=== PATIENT | female | born 1960 | race Hispanic/Latino ===

== ENCOUNTER 2017-11-09 13:32 | Inpatient (IN) ==
[2017-11-09] MEDS ORDERED: Sodium Chloride 0.9% 1,000 ML PRIMARY IV ONE (13:38)
[2017-11-09] MEDS ORDERED: IPRATROPIUM/ALBUTEROL SULFATE 3 ML NEB NEB ONE (13:38)
--- NOTE | 2017-11-09 13:48 | EKG ---
[address] [address] Measurements Intervals [place] Rate: 77 P: 79 FL: 161 QRS: 92 QRSD: 86 T: 80 QT: 376 QTc: 408 Interpretive Statements SINUS RHYTHM BORDERLINE RIGHT AXIS DEVIATION [QRS AXIS > 90] No previous ECG available for comparison Electronically Signed On 11-10-17 15:05:20 MDT by Herb Duron MD [email or web address]
[2017-11-09 13:54] LABS: VENOUS PH 7.42 (7.32-7.42)
--- NOTE | 2017-11-09 13:54 | PDOC ---
Dyspnea HPI - General Chief Complaint: Dyspnea Stated Complaint: COUGH,HEADACHE, TROUBLE BREATHING Date Seen by Provider: 11/09/17 Time Seen by Provider: 13:35 Source: POSITIVE: Patient Exam Limitations: POSITIVE: No limitations Treatment Prior to Arrival: REPORTS: None Nurse's Notes Reviewed & Considered: Yes - History of Present Illness Initial Comments: The patient is a 57-year-old female who presents to the emergency department with complaints of difficulty breathing. She states that she started to develop a cough and general malaise yesterday. Her cough has worsened and is occasionally productive of mucus. She states that she has associated nausea and emesis that started last night. She has generalized body aches and headache. She also reports subjective fevers and chills. Her shortness of breath has significantly worsened today as well. She denies any specific complaints of chest pain. She does have a history of smoking and has been prescribed an inhaler in the past however does not currently use any type of breathing treatments or oxygen. She does have a history of chronic back pain for which she takes medications. She denies any history of heart disease or blood clots. She does state that she has been having some problems with her left knee and has had some swelling in her left leg. She is supposed to have some type of orthopedic surgery on her left knee at some point. - Patient Home Medications Home Medications: Home Medications NK 11/09/17 - Patient Allergies Allergies/Adverse Reactions: Allergies 3 Allergy/AdvReac Type Severity Reaction Status Date / Time No Known Allergies Allergy Verified 11/09/17 13:33 Past Medical History - heen HEENT History: Other (please comment) Additional HEENT History: PREVIOUS RUPTURE LEFT EAR DRUM. NECK BIOPSY Cardiovascular History: Denies History Respiratory History: Other (please comment) Additional Respiratory History: SMOKER Gastrointestinal History: Denies History Genitourinary History: Denies History Endocrine History: Denies History Musculoskeletal History: Back Pain, Other (please comment) Prosthesis or Implant: No Additional Musculoskeletal History: LT SHOULDER SURGERY. "BONE ON BONE" IN BACK. CHRONIC BACK PAIN Neurological History: Denies History Blood Disorders: Denies History Psychiatric History: Denies History History of Sexually Transmitted Diseases: No Cancer History: Denies History In Past Year Been Physically Harmed or Verbally Threatened: No History of MDRO: No History of Other Communicable Diseases: No Tobacco Use: Current Every Day Smoker Alcohol Use: None In the Past 12 Months, Have Used or Abuse Any Substance: None Previous Surgical History: Yes Type / Date of Surgery: X 4. RT SHOULDER. NECK BIOPSY Significant Family History: No pertinent family hx Past Medical History Reviewed: Reviewed - No Changes ROS - Limitations ROS Limitations: No Limitations Constitution: REPORTS: Chills, Fever (Subjective) Cardiovascular: DENIES: Chest Pain, Heart Palpitations, Edema (Some swelling in her left leg related to her left knee) Neurological: REPORTS: Headache. DENIES: Numbness, Weakness Gastrointestinal: REPORTS: Nausea, Vomitting. DENIES: Abdominal Pain Endocrine: REPORTS: Fatigue Musculoskeletal: REPORTS: Back Pain (Chronic back pain), Muscle Aches Genitourinary: REPORTS: Denies Symptoms Eyes: REPORTS: Denies Symptoms ENT: REPORTS: Congestion, Sore Throat Skin: DENIES: Rash Dyspnea Physical Exam - General Appearance General Appearance: REPORTS: Alert, Cooperative, No Acute Distress - HEENT HEENT: POSITIVE: Head Inspection Nml, Eyes Inspection Nml, Ears Inspection Nml, Pharynx Inspect. Nml, Dry Mucous Membranes - Neck Neck: REPORTS: Normal Inspection. DENIES: Lymphadenopathy - Respiratory Respiratory: REPORTS: Speaks Full Sentences, Other (Oxygen saturations were in the low 80s on room air, she was placed on O2 per nasal cannula at 4 L to bring her sats up into the 90s. Breath sounds are diminished with expiratory wheezes and rhonchi bilaterally) - Cardiovascular Cardiovascular: REPORTS: Regular Rate and Rhythm, Heart Sounds Normal Peripheral Pulses: Dorsalis-pedis (R): 2+, Dorsalis-pedis (L): 2+ - Abdomen Abdomen: Soft: (All Quadrants), Denies Tenderness: (All Quadrants) - Skin Skin: REPORTS: Intact, No Rash - Extremities Extremity: Normal ROM: (All Extremities), Normal Inspection: (All Extremities) - Neurological / Psychological Neurological: POSITIVE: Oriented X3, Motor Normal, Sensation Normal Dyspnea Progress - Results Reviewed by me Xrays/CTs/US Reviewed by me: Yes Discussed with Radiologist: Yes Radiology Findings: One view chest x-ray is read as normal with hyperinflation per radiologist. I suspect there might be some increased haziness in the left lower lobe. Lab Results Reviewed by Me: Yes CBC and BMP: 11/09/17 13:40 11/09/17 13:40 Lab Results:: Laboratory Results 3 11/09/17 11/09/17 11/09/17 13:40 13:40 13:40 WBC 19.0 H RBC 4.61 Hgb 14.3 Hct 42.9 MCV 93 MCH 31.0 MCHC 33.4 RDW Coeff of Minal 13.4 Plt Count 217 MPV 8.2 Immature Gran % (Auto) 0 Neut % (Auto) 76.1 Lymph % (Auto) 12.1 Bull[place] % (Auto) 9.9 Eos % (Auto) 0.9 Baso % (Auto) 1.0 WBC Morphology Comment Normal morphology Plt Morphology Comment Normal morphology RBC Morph Comment Normal morphology D-Dimer 0.47 VBG pH VBG pCO2 VBG HCO3 VBG Base Excess Sodium Potassium Chloride Carbon Dioxide Anion Gap BUN Creatinine Estimated GFR BUN/Creatinine Ratio Glucose Calculated Osmolality Lactic Acid Calcium Total Bilirubin AST ALT Alkaline Phosphatase Troponin I < 0.012 Total Protein Albumin Globulin Albumin/Globulin Ratio 3 11/09/17 11/09/17 11/09/17 13:40 13:40 13:45 WBC RBC Hgb Hct MCV MCH MCHC RDW Coeff of Minal Plt Count MPV Immature Gran % (Auto) Neut % (Auto) Lymph % (Auto) [place] % (Auto) Eos % (Auto) Baso % (Auto) WBC Morphology Comment Plt Morphology Comment RBC Morph Comment D-Dimer VBG pH 7.42 VBG pCO2 38 L VBG HCO3 24 VBG Base Excess 0 Sodium 142 Potassium 3.8 Chloride 104 Carbon Dioxide 23 Anion Gap 15 BUN 12 Creatinine 0.8 Estimated GFR > 60 BUN/Creatinine Ratio 15.00 Glucose 122 H Calculated Osmolality 294.0 H Lactic Acid 1.0 Calcium 9.4 Total Bilirubin 0.6 AST 28 ALT 37 Alkaline Phosphatase 136 H Troponin I Total Protein 7.7 Albumin 4.2 Globulin 3.5 Albumin/Globulin Ratio 1.20 L EKG Interpreted/Reviewed By Me:: Yes EKG Interpretation:: POSITIVE: Normal Sinus Rhythm, Normal Rate, Normal Intervals, Normal QRS, Normal ST/T - Patient's Progress MDM / ED Course: The patient's oxygen saturations were in the low 80s on arrival to the emergency department. She was placed on O2 per nasal cannula. She did receive a DuoNeb shortly after arrival. Blood cultures and lactate were drawn with initial IV start. Her initial venous blood gas shows a pH of 7.41 with a PCO2 of 38. Her breathing subjectively improved after DuoNeb and being placed on oxygen. She was complaining of generalized aches as well as headache which she rated at an 8 out of 10. She received a liter of normal saline as well as Toradol 15 mg IV, Compazine 5 mg IV and Benadryl 25 mg IV after which she was feeling better. Her white blood cell count is elevated at 19,000. Lactate is normal at 1.0. D-dimer was also normal. Her chest x-ray was read as normal with hyperinflation per radiologist. Clinically however I suspect she has pneumonia with productive cough, hypoxia and elevated white count as well as rhonchi on exam and I question whether there might be some increased haziness on her chest x-ray in the left lower lobe. She will be treated clinically for COPD exacerbation and pneumonia. She was given Rocephin 2 g IV, Zithromax 500 mg IV and Solu-Medrol 125 mg IV. I did discuss these findings with the patient and her . I also discussed the patient with Dr. Bruno who has agreed to admit the patient to the hospitalist service for further treatment. The patient is in agreement with this plan. - Consult Counseled: POSITIVE: Patient, Family, RE: Lab Results, RE: Radiology Results, RE : DX Patient Care Time - Estimated PCT Patient Care Time (In Minutes): 30 Vital Signs - Recent Vital Signs Vital Signs: Vital Signs (Last 8 hours) Temp Pulse Pulse Resp BP Pulse Ox 11/09/17 13:51 78 16 94 11/09/17 13:50 82 15 92 11/09/17 13:35 24 91 11/09/17 13:32 97.9 F 89 28 H 112/61 81 - VS Reviewed Vital Signs Reviewed: Yes Discharge Clinical Impression: COPD exacerbation, Hypoxia, Pneumonia Discharge Disposition: Admit to Inpatient Condition: Fair Follow Up With: NONE,NONE [Primary Care Provider] - Date Decision to Admit to Inpatient: 11/09/17 Time Decision to Admit to Inpatient: 14:45
[2017-11-09] MEDS ORDERED: Prochlorperazine Edisylate Inj 10mg/2ml vial IVP ONE (14:13)
[2017-11-09] MEDS ORDERED: KETOROLAC 15 MG/1 ML VIAL IVP ONE (14:13)
[2017-11-09] MEDS ORDERED: diphenhydrAMINE 50 MG/1 ML VIAL IVP ONE (14:14)
[2017-11-09 14:26] LABS: EOSINOPHILS % (AUTO) 0.9 % (0-8); Hematocrit [HCT] 42.9 % (37.0-47.0); Hemoglobin [HGB] 14.3 g/dL (12.0-16.0); MEAN CORPUSCULAR HGB CONC 33.4 g/dL (33-37); MEAN CORPUSCULAR VOLUME 93 FL (81-99); MEAN PLATELET VOLUME 8.2 FL (7.4-12.2); MONOCYTES % (AUTO) 9.9 % (5-15); NEUTROPHILS % (AUTO) 76.1 % (50-80); RED BLOOD COUNT 4.61 10^6/uL (4.20-5.40)
[2017-11-09 14:27] LABS: PLATELET MORPHOLOGY COMMENT NORMAL MORPHOLOGY (NORM); RBC MORPHOLOGY COMMENT NORMAL MORPHOLOGY (NORM); WBC MORPHOLOGY COMMENT NORMAL MORPHOLOGY (NORM)
[2017-11-09 14:34] LABS: BLOOD UREA NITROGEN 12 mg/dL (7-22); SERUM ALBUMIN 4.2 g/dL (3.5-4.8)
--- NOTE | 2017-11-09 14:37 | DI ---
AP CHEST X-RAY, 11/09/2017 1:40 PM : Clinical History: Dyspnea. Previous Exam: None at this facility. There is no acute soft tissue or bony abnormality. Heart size is normal. The lungs are hyperinflated. There is no acute infiltrate or effusion. Mediastinal structures are normal. There are no pulmonary nodules. Reading: Normal chest x-ray. The lungs are hyperinflated in this patient may have underlying emphysema.
[2017-11-09] MEDS ORDERED: cefTRIAXone Inj 2 GM in Sodium Chloride 0.9% 100 ML IV ONE (14:38)
[2017-11-09] MEDS ORDERED: methylPREDNISolone 125 MG/2 ML VIAL IVP ONE (14:38)
[2017-11-09] MEDS ORDERED: ALBUTEROL SULFATE 2.5 MG/3 ML NEB PRN (15:25)
[2017-11-09] MEDS ORDERED: LIDOCAINE W/ SODIUM BICARB 0.5 ML SYR SUBD PRN (15:25)
[2017-11-09] MEDS ORDERED: Sodium Chloride 0.9% 250 ML IV ONE (15:26)
[2017-11-09] MEDS ORDERED: PNEUMOCOCCAL 23 VACCINE 25 MCG/0.5 ML VIAL IM ONE (15:55)
[2017-11-09] MEDS ORDERED: Sodium Chloride 0.9% 500 ML IV ONE (16:33)
[2017-11-09] MEDS ORDERED: KETOROLAC 15 MG/1 ML VIAL IVP PRN (16:36)
[2017-11-09] MEDS: cefTRIAXone Inj 2 GM in Sodium Chloride 0.9% 100 ML IV SCH (16:39)
--- NOTE | 2017-11-09 16:40 | PDOC ---
HPI - History of Present Illness Date of Service: 11/09/17 Time of Service: 16:35 Chief Complaint: Cough and vomiting History of Present Illness: This very pleasant 57-year-old female without significant past medical history other than left knee osteoarthritis for which she is waiting a knee replacement and tobacco abuse, who comes in accompanied by her with complaints of coughing that started abruptly yesterday and then was followed soon by vomiting. The patient had fevers and chills. She stated her temperature was as high as the 102F. She has not had the symptoms happen before. Despite her smoking, she states that she's been cutting back and she is at about a pack a day and she does not have a daily smoker's cough. She felt short of breath as well, she states that she tried Tylenol and Robitussin without any relief. She came in for evaluation and a chest x-ray was negative for any pneumonia. She is found to be hypoxic with a room air saturation of 81%. Antibiotics and breathing treatments in the emergency room seemed to help. It was felt that she may have developing COPD and perhaps had an exacerbation and is asked to admit the patient. The patient did notice that she was wheezing as an associated symptom with the above complaints. Past Medical History Medical History: 1. Osteoarthritis, awaiting a left knee replacement in [place], [place]. Surgical History: 1. Skin biopsy on her neck, benign Pertinent Family History: Significant for diabetes in her siblings Past Social History: Smokes one pack per day, does not drink alcohol, . Has been for over 30 years. Has 3 children described as healthy. Lives in [place], [place], but appear with her for his work. Tobacco Use: Current Every Day Smoker (1 pack per day) In the Past 12 Months, Have Used or Abuse Any of the Following Substance: None Alcohol Use: None Medication / Allergies Home Medications: Home Medications 3 Medication Instructions Recorded Confirmed Type NK 11/09/17 11/09/17 History Allergies/Adverse Reactions: Allergies 3 Allergy/AdvReac Type Severity Reaction Status Date / Time No Known Allergies Allergy Verified 11/09/17 13:33 Review of Systems - Review of Systems All Systems: Reviewed & No Additional Complaints Except as Stated (I did a 12 point review systems and it was negative other than that discussed in history of present illness and that noted below.) - Respiratory Respiratory: REPORTS: Negative System Review, Cough, Wheezing - Musculoskeletal Musculoskeletal: REPORTS: Joint Pain - Knees (Left knee in particular.) - Additonal Details Additional ROS Details: History of a rash on her neck in the past that required biopsy but it was benign. Exam - Vitals Vital Signs: Vital Signs Temperature 97.9 F Temperature Source Temporal Artery Scan Pulse Rate [Pulse Oximeter] 76 Pulse Rate 78 Respiratory Rate 28 Blood Pressure [Left Arm] 100/51 Pulse Ox 90 Oxygen Flow Rate 4 Oxygen Delivery Method Nasal Cannula Height 5 ft Weight 150 lb 14.4 oz - General General Appearance: No Acute Distress, Cooperative - Head Head Exam: Normal Inspection, Normocephalic, Atraumatic - Eye Eye Exam: POSITIVE: Normal Appearance, No Scleral Icterus - ENT ENT Exam: POSITIVE: Mucous Membranes Dry - Neck Neck Exam: Normal Inspection, No Tenderness, No Lymphadenopathy, No Thyromegaly , JVP is not Raised - Respiratory Respiratory Exam: POSITIVE: Breathing Non Labored, Wheezes, Coarse Breath Sounds Additional Respiratory Exam Details: The patient has had intermittent respiratory rate in the mid to high 20s, but on my examination she was in the 16-18 range. - Cardiovascular Cardiovascular Exam: POSITIVE: RRR, No Murmur, No Clicks, No Gallops, No Rubs, No JVD - GI/Abdominal GI/Abdominal Exam: POSITIVE: Normal Bowel Sounds, Non Tender - Rectal Rectal Exam: POSITIVE: Deferred - External Exam: POSITIVE: Deferred Exam: POSITIVE: Deferred - Extremities Extremities Exam: POSITIVE: No Clubbing Present, No Edema Present, No Cyanosis Present - Back Back Exam: POSITIVE: Normal Inspection, No CVA Tenderness - Neurological Neurological Exam: POSITIVE: Alert, Oriented x 3, No Facial Droop, Speech Intact / Clear, Moves All Extremities Equally - Psychiatric Psychiatric Exam: POSITIVE: Normal Affect, Normal Mood - Integumentary Integumentary Exam: POSITIVE: Normal Color, Warm, Dry, Intact - Central Line Examination Central Line Present on Admission: No Results - Labs CBC and BMP: 11/09/17 13:40 11/09/17 13:40 Additional Lab Results: Laboratory Results 11/09/17 11/09/17 11/09/17 Range/Units 13:40 13:40 13:40 WBC 19.0 H (4.8-10.8) 10^3/uL RBC 4.61 (4.20-5.40) 10^6/uL Hgb 14.3 (12.0-16.0) g/dL Hct 42.9 (37.0-47.0) % MCV 93 (81-99) FL MCH 31.0 (27-31) PG MCHC 33.4 (33-37) g/dL RDW Coeff of Minal 13.4 (11.5-14.5) % Plt Count 217 (140-350) 10*3/uL MPV 8.2 (7.4-12.2) FL Immature Gran % (Auto) 0 (0-5) % Neut % (Auto) 76.1 (50-80) % Lymph % (Auto) 12.1 (10-50) % Petroleum % (Auto) 9.9 (5-15) % Eos % (Auto) 0.9 (0-8) % Baso % (Auto) 1.0 (0-1) % WBC Morphology Comment Normal morphology (NORM) Plt Morphology Comment Normal morphology (NORM) RBC Morph Comment Normal morphology (NORM) D-Dimer (0.00-0.59) mg/L VBG pH (7.32-7.42) VBG pCO2 (45-55) mmHg VBG HCO3 (22-26) mmol/L VBG Base Excess (-2-2) MMOL/L Sodium (135-145) meq/L Potassium (3.8-5.2) meq/L Chloride (98-112) meq/L Carbon Dioxide (23-33) meq/L Anion Gap (5-20) BUN (7-22) mg/dL Creatinine (0.50-1.20) mg/dL Estimated GFR (>60 ml/min/1.73m(2)) BUN/Creatinine Ratio (6-20) Glucose (78-110) mg/dL Calculated Osmolality (267-292) mOsm/kg Lactic Acid (0.70-2.10) MMOL/L Calcium (8.7-10.7) mg/dL Magnesium 2.2 (1.6-2.4) mg/dL Total Bilirubin (0.3-1.2) mg/dL AST (8-39) IU/L ALT (9-52) IU/L Alkaline Phosphatase (38-126) IU/L Troponin I < 0.012 (< 0.040) ng/mL C-Reactive Protein 19.1 H (0.0-0.9) mg/dL NT-Pro-B Natriuret Pep 1300 H (0-125) PG/ML Total Protein (6.1-8.0) g/dL Albumin (3.5-4.8) g/dL Globulin (2.50-4.10) g/dL Albumin/Globulin Ratio (1.3-2.0) mg/g 11/09/17 11/09/17 11/09/17 Range/Units 13:40 13:40 13:40 WBC (4.8-10.8) 10^3/uL RBC (4.20-5.40) 10^6/uL Hgb (12.0-16.0) g/dL Hct (37.0-47.0) % MCV (81-99) FL MCH (27-31) PG MCHC (33-37) g/dL RDW Coeff of Minal (11.5-14.5) % Plt Count (140-350) 10*3/uL MPV (7.4-12.2) FL Immature Gran % (Auto) (0-5) % Neut % (Auto) (50-80) % Lymph % (Auto) (10-50) % Petroleum % (Auto) (5-15) % Eos % (Auto) (0-8) % Baso % (Auto) (0-1) % WBC Morphology Comment (NORM) Plt Morphology Comment (NORM) RBC Morph Comment (NORM) D-Dimer 0.47 (0.00-0.59) mg/L VBG pH (7.32-7.42) VBG pCO2 (45-55) mmHg VBG HCO3 (22-26) mmol/L VBG Base Excess (-2-2) MMOL/L Sodium 142 (135-145) meq/L Potassium 3.8 (3.8-5.2) meq/L Chloride 104 (98-112) meq/L Carbon Dioxide 23 (23-33) meq/L Anion Gap 15 (5-20) BUN 12 (7-22) mg/dL Creatinine 0.8 (0.50-1.20) mg/dL Estimated GFR > 60 (>60 ml/min/1.73m(2)) BUN/Creatinine Ratio 15.00 (6-20) Glucose 122 H (78-110) mg/dL Calculated Osmolality 294.0 H (267-292) mOsm/kg Lactic Acid 1.0 (0.70-2.10) MMOL/L Calcium 9.4 (8.7-10.7) mg/dL Magnesium (1.6-2.4) mg/dL Total Bilirubin 0.6 (0.3-1.2) mg/dL AST 28 (8-39) IU/L ALT 37 (9-52) IU/L Alkaline Phosphatase 136 H (38-126) IU/L Troponin I (< 0.040) ng/mL C-Reactive Protein (0.0-0.9) mg/dL NT-Pro-B Natriuret Pep (0-125) PG/ML Total Protein 7.7 (6.1-8.0) g/dL Albumin 4.2 (3.5-4.8) g/dL Globulin 3.5 (2.50-4.10) g/dL Albumin/Globulin Ratio 1.20 L (1.3-2.0) mg/g 11/09/17 Range/Units 13:45 WBC (4.8-10.8) 10^3/uL RBC (4.20-5.40) 10^6/uL Hgb (12.0-16.0) g/dL Hct (37.0-47.0) % MCV (81-99) FL MCH (27-31) PG MCHC (33-37) g/dL RDW Coeff of Minal (11.5-14.5) % Plt Count (140-350) 10*3/uL MPV (7.4-12.2) FL Immature Gran % (Auto) (0-5) % Neut % (Auto) (50-80) % Lymph % (Auto) (10-50) % Petroleum % (Auto) (5-15) % Eos % (Auto) (0-8) % Baso % (Auto) (0-1) % WBC Morphology Comment (NORM) Plt Morphology Comment (NORM) RBC Morph Comment (NORM) D-Dimer (0.00-0.59) mg/L VBG pH 7.42 (7.32-7.42) VBG pCO2 38 L (45-55) mmHg VBG HCO3 24 (22-26) mmol/L VBG Base Excess 0 (-2-2) MMOL/L Sodium (135-145) meq/L Potassium (3.8-5.2) meq/L Chloride (98-112) meq/L Carbon Dioxide (23-33) meq/L Anion Gap (5-20) BUN (7-22) mg/dL Creatinine (0.50-1.20) mg/dL Estimated GFR (>60 ml/min/1.73m(2)) BUN/Creatinine Ratio (6-20) Glucose (78-110) mg/dL Calculated Osmolality (267-292) mOsm/kg Lactic Acid (0.70-2.10) MMOL/L Calcium (8.7-10.7) mg/dL Magnesium (1.6-2.4) mg/dL Total Bilirubin (0.3-1.2) mg/dL AST (8-39) IU/L ALT (9-52) IU/L Alkaline Phosphatase (38-126) IU/L Troponin I (< 0.040) ng/mL C-Reactive Protein (0.0-0.9) mg/dL NT-Pro-B Natriuret Pep (0-125) PG/ML Total Protein (6.1-8.0) g/dL Albumin (3.5-4.8) g/dL Globulin (2.50-4.10) g/dL Albumin/Globulin Ratio (1.3-2.0) mg/g - EKG Data -: EKG Interpreted by Me Rate: Normal EKG Shows Normal: Sinus Rhythm - EKG Data When Compared to Previous EKG(s) There Are: Previous EKG Unavailable EKG Interpretation: Normal EKG - Imaging Status: Image Reviewed by Me (Chest x-ray, on my view, negative for pneumonia.) Assessment and Plan - Patient Problems (1) Respiratory insufficiency Current Visit: Yes Status: Acute Code(s): R06.89 - Other abnormalities of breathing (2) Hypoxia Current Visit: Yes Status: Acute Code(s): R09.02 - Hypoxemia (3) Tobacco abuse Current Visit: Yes Status: Acute Code(s): Z72.0 - Tobacco use (4) Osteoarthritis of left knee Current Visit: No Status: Acute Code(s): M17.9 - Osteoarthritis of knee, unspecified - Assessment / Plan Additional Assessment/Plan Details: At this point I do not know if this is a COPD exacerbation, PE with the abrupt onset of symptoms, that chest x-ray just does not seem. 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 The abruptness of the symptoms make me think that this could be a pneumonia or a blood clot. She could very well have COPD or emphysema and I think that when she is in a normal state, i.e. not in an infectious state, or acute presentation stay, the patient should probably have pulmonary function tests are off the spirometry to try and diagnose COPD. In terms of her respiratory insufficiency at this time, I will treat as if this could be a potential exacerbation, continue Rocephin IV, steroids with prednisone at 40 mg daily for 5 days, and then oxygen as necessary with breathing therapies and pulmonary toilet. Patient did request Percocet for her knee pain. I did review the medical record. She's had multiple emergency room visits but not for the last 2 years related to knee pain in the past as well. She states to me that she is awaiting knee replacement. I will go ahead and write for the Percocet at this time. She requested discharge, I will only do a short-term prescription. IV fluids be administered as her systolic pressures around 100, and she looks clinically mildly dehydrated. Check CBC in a.m. with differential Full code Plan above discussed with patient and her and they agreed. Pneumovax vaccine will be administered by the patient is here. I did provide smoking cessation education and encouraged patient to continue to her efforts to cut back and quit smoking.
[2017-11-09] MEDS: Sodium Chloride 0.9% 1,000 ML PRIMARY IV SCH (17:23)
[2017-11-09] MEDS: oxyCODONE/APAP 7.5/325 Tab 1 TAB TAB PO PRN ×2 (17:51→21:45)
[2017-11-09] MEDS: IPRATROPIUM/ALBUTEROL SULFATE 3 ML NEB NEB SCH ×2 (18:19→19:15)
[2017-11-09] MEDS: PREDNISONE PO SCH ×2 (19:34)
[2017-11-09] MEDS: diphenhydrAMINE 25 MG CAPSULE PO SCH (19:34)
[2017-11-09] MEDS ORDERED: Sodium Chloride 0.9% 500 ML PRIMARY IV ONE (20:47)
[2017-11-10] MEDS ORDERED: Sodium Chloride 0.9% 500 ML PRIMARY IV ONE (00:24)
[2017-11-10] MEDS: Sodium Chloride 0.9% 1,000 ML PRIMARY IV SCH ×3 (00:43→09:04)
[2017-11-10] MEDS: PREDNISONE PO SCH ×4 (00:43→07:05)
[2017-11-10] MEDS: diphenhydrAMINE 25 MG CAPSULE PO SCH ×2 (00:43→07:05)
[2017-11-10] MEDS: oxyCODONE/APAP 7.5/325 Tab 1 TAB TAB PO PRN ×5 (02:31→21:04)
[2017-11-10] MEDS ORDERED: Sodium Chloride 0.9% 500 ML IV ONE (04:51)
[2017-11-10 05:18] LABS: BASOPHILS # (AUTO) 0.01 10*3/UL; BASOPHILS % (AUTO) 0.1 % (0-1); EOSINOPHILS # (AUTO) 0 10*3/UL; EOSINOPHILS % (AUTO) 0 % (0-8); Hematocrit [HCT] 34.5 % (37.0-47.0); Hemoglobin [HGB] 11.4 g/dL (12.0-16.0); LYMPHOCYTES # (AUTO) 1.42 10*3/uL; MEAN CORPUSCULAR HEMOGLOBIN 30.5 PG (27-31); MEAN CORPUSCULAR VOLUME 92.2 FL (81-99); MEAN PLATELET VOLUME 11.2 FL (7.4-12.2); MONOCYTES # (AUTO) 0.72 10*3/UL (0.3-0.8); NEUTROPHILS # (AUTO) 15.64 10*3/UL; NEUTROPHILS % (AUTO) 87.7 % (50-80); RED BLOOD COUNT 3.74 10^6/uL (4.20-5.40)
[2017-11-10 06:09] LABS: PLATELET MORPHOLOGY COMMENT NORMAL MORPHOLOGY (NORM); RBC MORPHOLOGY COMMENT NORMAL MORPHOLOGY (NORM); WBC MORPHOLOGY COMMENT NORMAL MORPHOLOGY (NORM)
[2017-11-10] MEDS: IPRATROPIUM/ALBUTEROL SULFATE 3 ML NEB NEB SCH ×4 (06:10→18:28)
[2017-11-10] MEDS: ENOXAPARIN SODIUM 40 MG/0.4 ML SYRINGE SUBCUT SCH (09:07)
--- NOTE | 2017-11-10 09:58 | DI ---
CT ANGIOGRAM OF THE CHEST, 11/10/2017 8:00 AM : Clinical History: Shortness of breath. Cough. Hypoxia. Previous Exam: None at this facility. Scans are performed from the base of the neck to the lower lung bases with IV contrast. 65 mL of Isov ue 300 was injected IV. Proprietary automated bolus tracking software was used to verify the timing o f the injection. The patient indicated that she had a contrast allergy and the patient was premedicat ed with steroids by the attending hospitalist over the past 13 hours. The base of the neck and thoracic inlet are normal. There are no abnormal axillary, supraclavicular, mediastinal, or hilar nodes. The heart is normal. The pulmonary arteries are normal. There is no pulm onary arterial hypertension. There is no evidence of pulmonary embolism or pulmonary infarction. Ther e is discoid atelectasis in the lingular segment as well as patchy areas of atelectasis in the left l ower lobe. There is atelectasis in the right lower lobe primarily in the posterobasal segment. There is bullous emphysema with chronic interstitial pulmonary fibrosis manifested by Julian A and Julina B lines. In the posterior segment of the right upper lobe, there is a more prominent "honeycomb" patte rn also indicating chronic interstitial disease although it is uncertain why only this segment is inv olved rather than a more diffuse distribution. There is either loculated pleural fluid or pleural thi ckening in the superior aspect of the left major fissure. READIN. Normal CTA of the chest. There are no pulmonary emboli or pulmonary infarcts. 2. There is discoid atelectasis in the lingular segment with atelectasis in both lower lobes and eit her loculated fluid or pleural thickening in the superior aspect of the left major fissure. 3. Centrilobular emphysema with bullae and chronic interstitial pulmonary fibrosis. The posterior se gment of the right upper lobe has a "honeycomb" pattern typical of chronic interstitial disease altho ugh it is uncertain why only the segment is involved rather than a more diffuse distribution.
[2017-11-10] MEDS: predniSONE Tab 20 MG TAB PO SCH (11:06)
[2017-11-10] MEDS: cefTRIAXone Inj 2 GM in Sodium Chloride 0.9% 100 ML IV SCH (15:07)
[2017-11-10] MEDS ORDERED: NICOTINE 21 MG /DAY PATCH TRANSDERM ONE (16:05)
--- NOTE | 2017-11-10 16:05 | PDOC(PROG) ---
Date and Time of Service: 11/10/2017, 1604 Interval History: States that she has some pain from coughing along her rib cage bilaterally and has a headache. Otherwise she feels better in terms of her cough, still present but lightened up a bit. She feels like her breathing is a little better. No chest pains. No nausea or vomiting. Is willing to try a nicotine patch. Objective : Data - Labs CBC and BMP: 11/10/17 04:18 11/09/17 13:40 - Imaging CT Scan Status: Image Reviewed by Me (I looked at the CT scan and I'm not sure what's going on in the right lower lobe but it looks like there could be some atelectasis there and it looks consistent with emphysema. I read the report from the radiologist.) Objective : Exam - General General Appearance: No Acute Distress, Cooperative Additional General Exam Details: Vital Signs - Last Taken Temperature 98.4 F 11/10/17 13:00 Pulse Rate 74 11/10/17 15:02 Respiratory Rate 20 11/10/17 15:02 Blood Pressure 103/53 11/10/17 13:00 Pulse Ox 93 11/10/17 15:01 - Eye Eye Exam: No Scleral Icterus - ENT ENT Exam: Mucous Membranes Moist - Respiratory Respiratory Exam: Breathing Non Labored, Wheezes, Coarse Breath Sounds - Cardiovascular Cardiovascular Exam: RRR, No Murmur, No Clicks, No Gallops, No Rubs, No JVD - GI/Abdominal GI/Abdominal Exam: Normal Bowel Sounds, Non Tender, Non Distended, Soft - Extremities Extremities Exam: No Clubbing Present, No Edema Present, No Cyanosis Present - Neurological Neurological Exam: Alert, Oriented x 3, No Facial Droop, Speech Intact / Clear, Moves All Extremities Equally Assessment and Plan - Patient Problems (1) COPD exacerbation Current Visit: Yes Status: Acute Code(s): J44.1 - Chronic obstructive pulmonary disease with (acute) exacerbation (2) Respiratory insufficiency Current Visit: Yes Status: Acute Code(s): R06.89 - Other abnormalities of breathing (3) Hypoxia Current Visit: Yes Status: Acute Code(s): R09.02 - Hypoxemia (4) Tobacco abuse Current Visit: Yes Status: Acute Code(s): Z72.0 - Tobacco use (5) Osteoarthritis of left knee Current Visit: No Status: Acute Code(s): M17.9 - Osteoarthritis of knee, unspecified - Assessment / Plan Additional Assessment/Plan Details: Continue Rocephin/steroids/oxygen/breathing therapies Smoking cessation education and we will try nicotine replacement. I discussed this for less than 5 minutes with the patient. That was done at bedside. Codeine for cough. I think the patient would benefit from an evaluation with [facility] in [place] to review her CT scan and do any further workup for pulmonary fibrosis as indicated by their review. She can get her referral to them from her primary physician in [place] and she lives down there. We will get a CT scan on a CD for her to take with her at the time of discharge. She's not quite ready to discharge, still hypoxic, not sure if she'll need oxygen so I like to watch her another 24 hours or so. CBC in a.m.
[2017-11-10] MEDS: GUAIFENESIN/CODEINE SYRUP 100 MG/ 10 MG/ 5 ML UD CUP PO PRN ×2 (16:46→23:41)
[2017-11-11] MEDS: oxyCODONE/APAP 7.5/325 Tab 1 TAB TAB PO PRN ×4 (02:25→15:09)
[2017-11-11] MEDS: IPRATROPIUM/ALBUTEROL SULFATE 3 ML NEB NEB SCH ×3 (06:12→14:47)
[2017-11-11 06:15] VITALS: RESP 20
[2017-11-11] MEDS: GUAIFENESIN/CODEINE SYRUP 100 MG/ 10 MG/ 5 ML UD CUP PO PRN (06:42)
[2017-11-11] MEDS ORDERED: NICOTINE 21 MG /DAY PATCH TRANSDERM SCH (09:00)
[2017-11-11] MEDS ORDERED: Patch Removal PATCH TRANSDERM SCH (09:00)
[2017-11-11] MEDS: predniSONE Tab 20 MG TAB PO SCH (09:12)
[2017-11-11] MEDS: ENOXAPARIN SODIUM 40 MG/0.4 ML SYRINGE SUBCUT SCH (09:12)
[2017-11-11 11:49] LABS: BASOPHILS # (AUTO) 0.02 10*3/UL; BASOPHILS % (AUTO) 0.1 % (0-1); EOSINOPHILS # (AUTO) 0.01 10*3/UL; EOSINOPHILS % (AUTO) 0.1 % (0-8); Hematocrit [HCT] 36.2 % (37.0-47.0); Hemoglobin [HGB] 11.8 g/dL (12.0-16.0); MEAN CORPUSCULAR HEMOGLOBIN 29.9 PG (27-31); MEAN CORPUSCULAR HGB CONC 32.6 g/dL (33-37); MEAN CORPUSCULAR VOLUME 91.6 FL (81-99); MEAN PLATELET VOLUME 10.6 FL (7.4-12.2); MONOCYTES # (AUTO) 0.94 10*3/UL (0.3-0.8); MONOCYTES % (AUTO) 5.7 % (5-15); NEUTROPHILS # (AUTO) 13.52 10*3/UL; NEUTROPHILS % (AUTO) 82.1 % (50-80); RED BLOOD COUNT 3.95 10^6/uL (4.20-5.40)
[2017-11-11 12:08] LABS: PLATELET MORPHOLOGY COMMENT NORMAL MORPHOLOGY (NORM); RBC MORPHOLOGY COMMENT NORMAL MORPHOLOGY (NORM); WBC MORPHOLOGY COMMENT NORMAL MORPHOLOGY (NORM)
[2017-11-11 12:16] VITALS: BP 100/43; TEMP 98.1
--- NOTE | 2017-11-11 15:07 | DCSUMMARY ---
Hospitalization Summary Admit Date: 11/09/2017 Discharge Date: 11/11/17 Primary Diagnosis:: COPD exacerbation Secondary Diagnosis:: pulmonary fibrosis tobacco abuse Hospital Course: This is a 57-year-old female who came in with symptoms of cough, shortness breath, and is a nonsmoker. We did a chest x-ray and there is no evidence of pneumonia although clinically she seemed adequate pneumonia. We got a CAT scan , and it showed emphysema and fibrosis but no infiltrate. We treated her as a COPD exacerbation. This is newly diagnosed for her. She would still benefit from spirometry and her primary care clinic in [place]. The patient improved significantly and stated that her breathing was 80% better than when she came in today. She still has cough and some rib pain from her cough, but that was managed with Percocet and the patient states that that seemed to be helping. We also put her on some Robitussin before meals to help suppress the cough to some degree. She was managed with Rocephin and prednisone in the hospital and will have her finish her course of Zithromax over the next 3 days for a total of 5 days of antibiotics and we will keep her on 40 mg of prednisone through a total of 5 days and then discontinue. I'm starting the patient on Spiriva and albuterol as an outpatient. Given the CT scan findings of fibrosis as well as emphysema, I recommended to the patient that she see [facility] in [place]. She can arrange a referral through her primary provider who is based in [place]. We got the CT scan on a CD and gave her that at discharge. She was still 87% on room air at rest, and I believe will require 2 L of oxygen for at least some period of time and this can be reassessed as time goes on. We spent ample time on smoking cessation and we have the patient on a nicotine replacement patch. I recommended nicotine replacement products to try and come off of cigarettes. Today, the patient denies any chest pain, complains of some lower rib cage pain , particularly on the right, with coughing. She denies any nausea or vomiting. She would like to go home. Assessment and Plan: 1. As per discharge assessments noted 2. Disposition: Patient is discharged home 3. Condition on discharge, stable and improved. 4. Diet: regular diet 5. Activities: resume normal activities, but quit smoking 6. Follow-Up: 1. Primary care provider in [place] in 1 week 2. I recommend consideration for screening for diabetes as patient does have what appears to be steroid-induced hyperglycemia. This could be stress hyperglycemia as well. 7. Medications at the Time of Discharge: Home Medications 3 Medication Instructions Recorded Confirmed Type Albuterol 2 puff IH Q6H PRN #1 aer.refill 11/11/17 Rx Azithromycin [Zithromax] 500 mg PO DAILY #3 tab 11/11/17 Rx Nicotine 21mg Patch [Nicoderm CQ 1 patch TRANSDERM DAILY #30 patch 11/11/17 Rx 21mg Patch] Tiotropium Jenkins [Spiriva] 1 inh IH DAILY #1 cap.w.dev 11/11/17 Rx guaiFENesin/Codeine Liquid 5 ml PO Q6H PRN #120 cup 11/11/17 Rx [Robitussin AC Liquid] oxyCODONE/APAP 7.5/325 Tab 1 - 2 tab PO Q4H PRN #30 tab 11/11/17 Rx [Percocet 7.5/325 Tab] predniSONE Tab [Deltasone Tab] 40 mg PO DAILY #6 tab 11/11/17 Rx 8. Time, care, counseling and coordination of care for this discharge is greater than 30 minutes. Exam - Vitals Vital Signs: Vital Signs Temperature 98.1 F Temperature Source Temporal Artery Scan Pulse Rate [Telemetry] 58 Pulse Rate [Pulse Oximeter] 70 Pulse Rate 74 Respiratory Rate 20 Blood Pressure [Left Arm] 100/43 Pulse Ox 92 Oxygen Flow Rate 2 Oxygen Delivery Method Room Air Height 5 ft Weight 160 lb 9.6 oz - General General Appearance: No Acute Distress, Cooperative - Head Head Exam: Normal Inspection, Normocephalic, Atraumatic - Eye Eye Exam: POSITIVE: No Scleral Icterus - ENT ENT Exam: POSITIVE: Mucous Membranes Moist - Respiratory Respiratory Exam: POSITIVE: Breathing Non Labored, Wheezes (In the lower bases but significantly improved.) - Cardiovascular Cardiovascular Exam: POSITIVE: RRR, No Murmur, No Clicks, No Gallops, No Rubs, No JVD - GI/Abdominal GI/Abdominal Exam: POSITIVE: Normal Bowel Sounds, Non Tender, Non Distended, Soft - Extremities Extremities Exam: POSITIVE: No Edema Present, No Cyanosis Present - Neurological Neurological Exam: POSITIVE: Alert, Oriented x 3, No Facial Droop, Speech Intact / Clear, Moves All Extremities Equally Data Peritnent Studies: 11/09/17 11/09/17 11/09/17 13:40 13:40 13:40 WBC 19.0 H Hgb Hct Plt Count Sodium Potassium Chloride Carbon Dioxide Anion Gap BUN Creatinine Estimated GFR BUN/Creatinine Ratio Glucose Calculated Osmolality Lactic Acid Calcium Magnesium 2.2 Total Bilirubin AST ALT Alkaline Phosphatase Troponin I < 0.012 C-Reactive Protein 19.1 H NT-Pro-B Natriuret Pep 1300 H Total Protein Albumin Globulin 11/09/17 11/09/17 11/10/17 13:40 13:40 04:18 WBC 17.82 H Hgb Hct Plt Count Sodium 142 Potassium 3.8 Chloride 104 Carbon Dioxide 23 Anion Gap 15 BUN 12 Creatinine 0.8 Estimated GFR > 60 BUN/Creatinine Ratio 15.00 Glucose 122 H Calculated Osmolality 294.0 H Lactic Acid 1.0 Calcium 9.4 Magnesium Total Bilirubin 0.6 AST 28 ALT 37 Alkaline Phosphatase 136 H Troponin I C-Reactive Protein NT-Pro-B Natriuret Pep Total Protein 7.7 Albumin 4.2 Globulin 3.5 11/11/17 11:42 WBC 16.45 H Hgb 11.8 L Hct 36.2 L Plt Count 227 Sodium Potassium Chloride Carbon Dioxide Anion Gap BUN Creatinine Estimated GFR BUN/Creatinine Ratio Glucose Calculated Osmolality Lactic Acid Calcium Magnesium Total Bilirubin AST ALT Alkaline Phosphatase Troponin I C-Reactive Protein NT-Pro-B Natriuret Pep Total Protein Albumin Globulin Procedures: [address] [facility] [place] [address] PH: DD: [phone] FAX: [phone] ~DIAGNOSTIC IMAGING REPORT~ Patient: Marizol Rosas : 1960 Sex: F Age: 57 Exam Name: CT CTA Chest Non-Coronary [facility] Exam Date: 11/10/17 Report # : [id number] CPT Code: 33576 EMR/MR #: [id number] Ordering: ANALI HILL Admiting: ANALI HILL DO Primary: NONE,NONE Attending: ANALI HILL DO Signed CT ANGIOGRAM OF THE CHEST, 11/10/2017 8:00 AM : Clinical History: Shortness of breath. Cough. Hypoxia. Previous Exam: None at this facility. Scans are performed from the base of the neck to the lower lung bases with IV contrast. 65 mL of Isovue 300 was injected IV. Proprietary automated bolus tracking software was used to verify the timing of the injection. The patient indicated that she had a contrast allergy and the patient was premedicated with steroids by the attending hospitalist over the past 13 hours. The base of the neck and thoracic inlet are normal. There are no abnormal axillary, supraclavicular, mediastinal, or hilar nodes. The heart is normal. The pulmonary arteries are normal. There is no pulmonary arterial hypertension. There is no evidence of pulmonary embolism or pulmonary infarction. There is discoid atelectasis in the lingular segment as well as patchy areas of atelectasis in the left lower lobe. There is atelectasis in the right lower lobe primarily in the posterobasal segment. There is bullous emphysema with chronic interstitial pulmonary fibrosis manifested by Julian A and Julian B lines. In the posterior segment of the right upper lobe, there is a more prominent "honeycomb" pattern also indicating chronic interstitial disease although it is uncertain why only this segment is involved rather than a more diffuse distribution. There is either loculated pleural fluid or pleural thickening in the superior aspect of the left major fissure. READIN. Normal CTA of the chest. There are no pulmonary emboli or pulmonary infarcts. 2. There is discoid atelectasis in the lingular segment with atelectasis in both lower lobes and either loculated fluid or pleural thickening in the superior aspect of the left major fissure. 3. Centrilobular emphysema with bullae and chronic interstitial pulmonary fibrosis. The posterior segment of the right upper lobe has a "honeycomb" pattern typical of chronic interstitial disease although it is uncertain why only the segment is involved rather than a more diffuse distribution. Dictated By: 11/10/17 0928 USMAN FLANAGAN MD. Signed By: 11/10/17 0958 USMAN FLANAGAN MD. Patient Problems - Patient Problem List (1) COPD exacerbation Current Visit: Yes Status: Acute Code(s): J44.1 - Chronic obstructive pulmonary disease with (acute) exacerbation Category: Medical (2) Respiratory insufficiency Current Visit: Yes Status: Acute Code(s): R06.89 - Other abnormalities of breathing Category: Medical (3) Hypoxia Current Visit: Yes Status: Acute Code(s): R09.02 - Hypoxemia Category: Medical (4) Tobacco abuse Current Visit: Yes Status: Acute Code(s): Z72.0 - Tobacco use Category: Medical (5) Osteoarthritis of left knee Current Visit: No Status: Acute Code(s): M17.9 - Osteoarthritis of knee, unspecified Category: Medical (6) Pulmonary fibrosis Current Visit: Yes Status: Acute Code(s): J84.10 - Pulmonary fibrosis, unspecified Category: Medical
[2017-11-11] MEDS: cefTRIAXone Inj 2 GM in Sodium Chloride 0.9% 100 ML IV SCH (15:48)
[2017-11-11 16:49] VITALS: O2SAT 92
== END 2017-11-11 16:48 | disposition home or self-care (01) | DRG 192 ==
LOC: MED/SURG 13:32 → ER 13:32 → MED/SURG 15:39
PROVIDERS: ADMIT Family Medicine; ATTEND Family Medicine